=== PATIENT | female | born 1970 | race Hispanic/Latino ===

== ENCOUNTER 2022-04-30 19:21 | Emergency (ER) | payer BC, MEDICAID ==
[2022-04-30] MEDS ORDERED: Boostrix 0.5 ML (Tdap) VIAL ONE (20:41)
[2022-04-30] MEDS ORDERED: Amoxicillin/Potassium Clav 875 MG TAB ONE (20:41)
== END 2022-04-30 21:15 | disposition home or self-care (01) ==
LOC: MADERS 19:21
DX: S91.331A Puncture wound without foreign body, right foot, initial encounter (principal); I10 Essential (primary) hypertension; W45.0XXA Nail entering through skin, initial encounter; Z23 Encounter for immunization; Z79.899 Other long term (current) drug therapy
CPT/HCPCS: 90471; 90715